=== PATIENT | female | born 1985 | race Hispanic/Latino ===

== ENCOUNTER 2024-10-06 20:57 | Emergency (ER) | payer SELFPAY ==
[~2024-10-06] VITALS: Ht 154.9 cm; Wt 136.1 kg
[2024-10-06] MEDS ORDERED: DOXYCYCLINE HY100 MG PO (22:15)
[2024-10-06] MEDS: TETANUS/DIPHTHERIA TOX ADULT 0.5 ML SYR IM ONE (22:16)
[2024-10-06 22:19] VITALS: PULSE 90; RESP 18; TEMP 98.7; O2SAT 97
== END 2024-10-06 22:36 | disposition home or self-care (01) ==
LOC: ER 21:03
DX: S91.322A Laceration with foreign body, left foot, initial encounter (principal); W25.XXXA Contact with sharp glass, initial encounter; Y93.01 Activity, walking, marching and hiking; Y92.89 Other specified places as the place of occurrence of the external cause; E11.9 Type 2 diabetes mellitus without complications; F17.210 Nicotine dependence, cigarettes, uncomplicated
CPT/HCPCS: 90471; 90714; 99283